=== PATIENT | female | born 1975 | race Caucasian/White ===

== ENCOUNTER 2016-07-29 17:19 | Emergency (ER) | payer OTHER ==
[2016-07-29 17:25] VITALS: BP 107/62
--- NOTE | 2016-07-29 18:46 | UC ---
Ahmet Oconnor Aidan, scribed for Deedee Vegas MD on 07/29/16 at 1805 . Respiratory Complaint HPI - HPI Summary HPI Summary: 41 y/o female presents to the Urgent Care with a complaint of an acute, constant , moderate dry cough that began 3 days ago. Her cough was initially productive, but became dry within the past 2 days. No hemoptysis. + mild sputum production. Cough spasmodic at night. No rash. No GI issues. Associated symptoms include light nausea, a mild persistent fever, throat erythema, and some throat soreness. - History of Current Complaint Chief Complaint: UCRespiratory Stated Complaint: COUGH LINGERING Time Seen by Provider: 07/29/16 17:50 Hx Obtained From: Patient Hx Last Menstrual Period: 09/08/15 ?: No Onset/Duration: Gradual Onset, Lasting Days, Still Present Timing: Constant Severity Initially: Moderate Severity Currently: Moderate Character: Cough: Nonproductive - cough was initially productive but became nonproductive and more constant Aggravating Factors: Nothing - unknown Alleviating Factors: Nothing - unknown Associated Signs And Symptoms: Negative: Negative - light nausea, a mild persistent fever, throat erythema, and some throat soreness. - Allergies/Home Medications Allergies/Adverse Reactions: Allergies Allergy/AdvReac Type Severity Reaction Status Date / Time benadryl cream Allergy Mild "made skin Uncoded 07/29/16 17:25 worse" Home Medications: Home Medications Pseudoephedrine-Guaifenesin [Mucinex D Maximum Strengt 120-1200 mg] 1 tab PO DAILY 07/29/16 [History Confirmed 07/29/16] PMH/Surg Hx/FS Hx/Imm Hx Previously Healthy: Yes - Surgical History Surgical History: Yes Surgery Procedure, Year, and Place: 2007 [place]. WISDOM TEETH. [place] tunnel release 2016 right - Family History Known Family History: Positive: Cardiac Disease, Hypertension, Diabetes, Other - cancer - Social History Occupation: Employed Full-time Lives: With Family Alcohol Use: Rare Substance Use Type: None Smoking Status (MU): Never Smoked Tobacco Review of Systems Constitutional: Fever - low grade Skin: Negative Eyes: Negative ENT: Sore Throat, Other - throat erythema Respiratory: Cough Cardiovascular: Negative Gastrointestinal: Negative Genitourinary: Negative Motor: Negative Neurovascular: Negative Musculoskeletal: Negative Neurological: Negative Psychological: Negative All Other Systems Reviewed And Are Negative: Yes Physical Exam Triage Information Reviewed: Yes Appearance: Well-Nourished Vital Signs: Initial Vital Signs Temp 99.3 F 07/29/16 17:22 Pulse 75 07/29/16 17:22 Resp 18 07/29/16 17:22 BP 107/62 07/29/16 17:22 Pulse Ox 97 07/29/16 17:22 Vital Signs Reviewed: Yes Eye Exam: Normal ENT Exam: Other ENT: Positive: Pharyngeal erythema - post pharyngeal redness, no sores / exudate. Uvula midline. No stridor. No adenopathy appreciated. Neck supple , nt. Neck exam: Normal Neck: Positive: No Lymphadenopathy Respiratory Exam: Normal, Other - no dyspnea, no tachypnea, normal respiratory rate + occas exp wheeze bibasilar, + ronchorus cough. Respiratory: Positive: Chest non-tender, Lungs clear, Normal breath sounds, No respiratory distress, No accessory muscle use Cardiovascular Exam: Normal Cardiovascular: Positive: RRR, No Murmur, Pulses Normal, Brisk Capillary Refill , Other: - good general skin color Abdominal Exam: Normal Abdomen Description: Positive: Nontender, Soft Bowel Sounds: Positive: Present Musculoskeletal Exam: Normal Musculoskeletal: Positive: Strength Intact Neurological Exam: Normal, Other - nonfocal, grossly intact Neurological: Positive: Alert Psychological Exam: Normal, Other - conversing easily and appropriately Psychological: Positive: Age Appropriate Behavior Skin Exam: Normal, Other - no visible or reported rash UC Diagnostic Evaluation - Laboratory O2 Sat by Pulse Oximetry: 97 Respiratory Course/Dx - Course Course Of Treatment: no new problems in CCC. Pt reports that the cough at night is the worst. Rx as below: azithromycin. albuterol (d/w pt). diflucan (pt request). tylenol #3 (for severe cough). Usual narc talk. Denies addiction hx. - Differential Dx/Diagnosis Provider Diagnoses: acute bronchitis Discharge - Discharge Plan Condition: Stable Disposition: HOME Discharge Disposition Comment: Please follow up with your primary care provider within 3 days. Prescriptions: Acetaminop/Codeine 30 MG TAB* [Tylenol/Codeine 30 MG TAB*] 1 tab PO Q6H PRN #16 tab MDD 4 PRN Reason: sever cough Albuterol HFA INHALER* [Ventolin HFA Inhaler*] 1 - 2 puff INH Q4H PRN #1 mdi PRN Reason: Wheezing Azithromyxin JAMES (NF) [Z-James (Zithromax) 250 mg tabs #6] 2 tab PO .TODAY, THEN 1 DAILY #6 tab Fluconazole [Diflucan 150 MG (NF)] 150 mg PO DAILY #2 tab Patient Education Materials: Acute Bronchitis (ED) Referrals: Lauryn Hamilton MD [Primary Care Provider] - Additional Instructions: Follow up Dr. Hackett per routine - please seek medical attention sooner for worse or new problems in the meantime. The documentation as recorded by the Ahmet bermeo Aidan accurately reflects the service I personally performed and the decisions made by me, Deedee Vegas MD.
== END 2016-07-29 18:35 | disposition home or self-care (01) ==
LOC: UCEAST 17:19
DX: J20.9 Acute bronchitis, unspecified (principal)
CPT/HCPCS: 99212; G0463

== ENCOUNTER 2017-07-03 14:10 | Emergency (ER) | payer OTHER ==
[2017-07-03 14:35] VITALS: BP 108/74
--- NOTE | 2017-07-03 14:49 | UC ---
Complaint Female HPI - HPI Summary HPI Summary: This is a 41 yo female with c/o vaginal itching. She reports a h/o of freq vaginal yeast infections. She would like to be examined and tested while she's symptomatic to confirm diagnosis. She did take Diflucan this am and reports that her symptoms have already started to improve. She denies vaginal discharge. She is sexually active, in a monogamous relationship. No abd pain, n/v, or fevers. No hematuria. Declines STD testing. - History Of Current Complaint Chief Complaint: UCGU Stated Complaint: UTI Hx Last Menstrual Period: 09/08/15 Pain Intensity: 4 - Allergies/Home Medications Allergies/Adverse Reactions: Allergies Allergy/AdvReac Type Severity Reaction Status Date / Time benadryl cream Allergy Mild "made skin Uncoded 07/03/17 14:34 worse" PMH/Surg Hx/FS Hx/Imm Hx Previously Healthy: Yes - Surgical History Surgical History: Yes Surgery Procedure, Year, and Place: 2007 [place]. WISDOM TEETH. [place] tunnel release 2016 right - Family History Known Family History: Positive: Cardiac Disease, Hypertension, Diabetes, Other - cancer - Social History Alcohol Use: Rare Substance Use Type: None Smoking Status (MU): Never Smoked Tobacco Review of Systems Constitutional: Negative Skin: Negative Eyes: Negative ENT: Negative Respiratory: Negative Cardiovascular: Negative Gastrointestinal: Negative Genitourinary: Vaginal/Penile Burning, Vaginal/Penile Itching, Vaginal/Penile Pain Motor: Negative Neurovascular: Negative Musculoskeletal: Negative Neurological: Negative Psychological: Negative Is Patient Immunocompromised?: No All Other Systems Reviewed And Are Negative: Yes Physical Exam Triage Information Reviewed: Yes Appearance: Well-Appearing Vital Signs: Initial Vital Signs Temp 98.6 F 07/03/17 14:31 Pulse 87 07/03/17 14:31 Resp 18 07/03/17 14:31 BP 108/74 07/03/17 14:31 Pulse Ox 99 07/03/17 14:31 Vital Signs Reviewed: Yes ENT Exam: Normal Neck exam: Normal Respiratory Exam: Normal Cardiovascular Exam: Normal Abdominal Exam: Normal Abdomen Description: Positive: Nontender Pelvic Exam: Positive: External Exam Normal, Speculum Exam Normal - old blood from recent menstrual cycle present Musculoskeletal Exam: Normal Neurological Exam: Normal Psychological Exam: Normal Skin Exam: Normal Diagnostics - Laboratory Diagnostic Studies Completed/Ordered: UA - + blood Complaint Female Dx - Course Course Of Treatment: Otherwise healthy female with vaginal itching and freq vaginal yeast infections. Exam nl. Sample collected for BV/yeast testing - Differential Dx/Diagnosis Differential Diagnosis/HQI/PQRI: Cervicitis, Sexually Transmitted Disease, Urinary Tract Infection Provider Diagnoses: Partially treated vaginal clayton infection Discharge - Sign-Out/Discharge Documenting (check all that apply): Discharge/Admit/Transfer - Discharge Plan Condition: Stable Disposition: HOME Patient Education Materials: Yeast Infection (ED) Referrals: Lauryn Hamilton MD [Primary Care Provider] - Additional Instructions: 1. Please follow up with your PCP regarding results 2. There does not appear to be a need for further treatment at this time - Billing Disposition and Condition Condition: STABLE Disposition: HOME
== END 2017-07-03 15:11 | disposition home or self-care (01) ==
LOC: UCEAST 14:10
DX: B37.3 Candidiasis of vulva and vagina (principal)
CPT/HCPCS: 81003; 87480; 87510; 99211; G0463

== ENCOUNTER 2018-10-21 13:56 | Emergency (ER) | payer OTHER ==
--- NOTE | 2018-10-21 14:43 | UC ---
Lower Extremity/Ankle HPI - HPI Summary HPI Summary: 43 yo female presents with RIGHT 3rd toe pain. She tells me that she was at the beach 10 days ago and remembers being in the ocean and feeling a sharp pain in this toe. She examined the area, but did not see anything. She rested for the remainder of the day and it was fine. About 3 days ago noticed bruising to the toe, but no pain. Today she developed pain when ambulating. The bruising has improved. She did not have a specific injury or fall. Has been using a cane to ambulate, which helps relieve pressure when weight bearing. - History of Current Complaint Stated Complaint: FOOT COMPLAINT Time Seen by Provider: 10/21/18 14:42 Hx Obtained From: Patient Hx Last Menstrual Period: 09/08/15 Onset/Duration: Gradual Onset Severity Initially: Mild Severity Currently: Moderate Pain Intensity: 6 Pain Scale Used: 0-10 Numeric Aggravating Factor(s): Standing, Ambulation Able to Bear Weight: Yes - Allergies/Home Medications Allergies/Adverse Reactions: Allergies Allergy/AdvReac Type Severity Reaction Status Date / Time benadryl cream Allergy Mild "made skin Uncoded 10/21/18 14:44 worse" Home Medications: Home Medications Ibuprofen [Advil] 2 tab PO ONCE PRN 10/21/18 [History Confirmed 10/21/18] diphenhydrAMINE HCl [Benadryl Allergy] 1 tab PO ONCE PRN 10/21/18 [History Confirmed 10/21/18] PMH/Surg Hx/FS Hx/Imm Hx - Additional Past Medical History Additional PMH: Allergies - Surgical History Surgical History: Yes Surgery Procedure, Year, and Place: 2007 [place]. WISDOM TEETH. CARPAL tunnel release 2016 right/LEFT - Family History Known Family History: Positive: Cardiac Disease, Hypertension, Diabetes, Other - cancer - Social History Lives: With Family Alcohol Use: Rare Substance Use Type: None Smoking Status (MU): Never Smoked Tobacco Review of Systems All Other Systems Reviewed And Are Negative: No Constitutional: Positive: Negative Skin: Positive: Negative Respiratory: Positive: Negative Cardiovascular: Positive: Negative Neurovascular: Positive: Negative Musculoskeletal: Positive: Other: - Left 3rd toe pain Neurological: Positive: Negative Psychological: Positive: Negative Physical Exam - Summary Physical Exam Summary: GENERAL: NAD. WDWN. No pain distress. SKIN: No rashes, sores, lesions, or open wounds. CHEST: No accessory muscle use. Breathing comfortably and in no distress. CV: Pulses intact PT and DP. Cap refill <2seconds MSK: LEFT 3rd toe: Faint ecchymosis on lateral toe. NTTP. Mild pain with flexion. Mild edema about toe. NEURO: Alert. Sensations intact and symmetric B/L LEs PSYCH: Age appropriate behavior. Triage Information Reviewed: Yes Vital Signs: Vital Signs: Temp Pulse Resp BP Pulse Ox 97.9 F 76 18 119/76 99 10/21/18 14:38 10/21/18 14:38 10/21/18 14:38 10/21/18 14:38 10/21/18 14:38 Vital Signs Reviewed: Yes Diagnostics - Radiology Toe Radiology Interpretation Completed By: Radiologist Summary of Radiographic Findings: IMPRESSION: No fracture of the right third digit is noted. Lower Extremity Course/Dx - Course Course Of Treatment: XR negative. Suspect sprain/contusion. Pt's toe was destin taped and she was placed in a postop shoe for comfort. RICE and f/u with her lens cutter if symptoms do not improve - Differential Dx/Diagnosis Provider Diagnosis: Toe sprain Discharge ED - Sign-Out/Discharge Documenting (check all that apply): Patient Departure All imaging exams completed and their final reports reviewed: Yes - Discharge Plan Condition: Stable Disposition: HOME Patient Education Materials: Contusion in Adults (ED) Referrals: Lauryn Hamilton MD [Primary Care Provider] - Additional Instructions: If you develop a fever, shortness of breath, chest pain, new or worsening symptoms - please call your PCP or go to the ED immediately. Continue to rest, ice, and elevate the area intermittently throughout the day. Use the destin tape and post-op shoe as needed for comfort If you continue to have increased pain or worsening symptoms - please call follow up with your lens cutter - Billing Disposition and Condition Condition: STABLE Disposition: Home
[2018-10-21 14:44] VITALS: BP 119/76
== END 2018-10-21 16:22 | disposition home or self-care (01) ==
LOC: UCEAST 13:56
DX: S93.504A Unspecified sprain of right lesser toe(s), initial encounter (principal); X58.XXXA Exposure to other specified factors, initial encounter; Y93.19 Activity, other involving water and watercraft; Y92.89 Other specified places as the place of occurrence of the external cause
CPT/HCPCS: 99212; G0463

== ENCOUNTER 2018-12-27 15:43 | Emergency (ER) | payer OTHER ==
[2018-12-27 15:58] VITALS: BP 113/75
--- NOTE | 2018-12-27 16:19 | UC ---
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 Onet of sore throat this morning with progression of sore throat, mild elevation of temp, malaise. - History of Current Complaint Chief Complaint: UCGeneralIllness Stated Complaint: SORE THROAT Time Seen by Provider: 12/27/18 16:11 Hx Obtained From: Patient Hx Last Menstrual Period: 12/01/18 Onset/Duration: Gradual Onset, Lasting Hours Severity: Mild Pain Intensity: 3 Cough: Nonproductive Associated Signs & Symptoms: Positive: Dysphagia - Epiglottits Risk Factors Epiglottis Risk Factors: Negative - Allergies/Home Medications Allergies/Adverse Reactions: Allergies Allergy/AdvReac Type Severity Reaction Status Date / Time benadryl cream Allergy Mild "made skin Uncoded 12/27/18 15:58 worse" PMH/Surg Hx/FS Hx/Imm Hx Previously Healthy: Yes - Surgical History Surgical History: Yes Surgery Procedure, Year, and Place: 2007 [place]. WISDOM TEETH. CARPAL tunnel release 2016 right/LEFT - Family History Known Family History: Positive: Cardiac Disease, Hypertension, Diabetes, Other - cancer - Social History Occupation: Employed Full-time Lives: With Family Alcohol Use: Rare Substance Use Type: None Smoking Status (MU): Never Smoked Tobacco Review of Systems All Other Systems Reviewed And Are Negative: Yes Constitutional: Positive: Fever - low grade, Fatigue Eyes: Positive: Negative ENT: Positive: Sore Throat Respiratory: Positive: Negative. Negative: Shortness Of Breath, Cough Cardiovascular: Negative: Chest Pain Gastrointestinal: Positive: Negative Genitourinary: Positive: Negative Motor: Positive: Negative Neurovascular: Positive: Negative Musculoskeletal: Positive: Negative Neurological: Positive: Negative Is Patient Immunocompromised?: No Physical Exam Triage Information Reviewed: Yes Appearance: Well-Appearing, No Pain Distress Vital Signs: Initial Vital Signs Temp 99.7 F 12/27/18 15:53 Pulse 80 12/27/18 15:53 Resp 16 12/27/18 15:53 BP 113/75 12/27/18 15:53 Pulse Ox 100 12/27/18 15:53 Eyes: Positive: Conjunctiva Clear ENT: Positive: Pharynx normal. Negative: Tonsillar swelling, Tonsillar exudate Neck: Positive: Supple, Nontender, No Lymphadenopathy Respiratory: Positive: Lungs clear, Normal breath sounds Cardiovascular: Positive: RRR, No Murmur Musculoskeletal Exam: Normal Neurological Exam: Normal Psychological Exam: Normal Skin Exam: Normal Diagnostics - Laboratory Lab Results: Rapid strep negative. Throat Pain/Nasal Course/Dx - Course Course Of Treatment: symptomatic treatment of viral pharyngitis. - Differential Dx/Diagnosis Differential Diagnosis/HQI/PQRI: Laryngitis, Pharyngitis, Tonsillitis Provider Diagnosis: Pharyngitis Discharge ED - Sign-Out/Discharge Documenting (check all that apply): Patient Departure All imaging exams completed and their final reports reviewed: No Studies - Discharge Plan Condition: Good Disposition: HOME Patient Education Materials: Pharyngitis (ED) Referrals: Lauryn Hamilton MD [Primary Care Provider] - Additional Instructions: Continue symptomatic treatment with rest, fluids and ibuprofen as needed for control of pain. - Billing Disposition and Condition Condition: GOOD Disposition: Home
== END 2018-12-27 16:30 | disposition home or self-care (01) ==
LOC: UCEAST 15:43
DX: J02.9 Acute pharyngitis, unspecified (principal); R53.81 Other malaise; Z88.8 Allergy status to other drugs, medicaments and biological substances
CPT/HCPCS: 87651; 99211; G0463